=== PATIENT | female | born 1975 | race Two or more races ===

== ENCOUNTER → 2024-03-11 | Outpatient (CLI) | payer MEDICAID, SELFPAY ==
--- NOTE | 2024-03-11 14:39 | XR_ITS ---
EXAMINATION: Ankle, left 3 views . Technique: Ankle AP, oblique, lateral 3 views Date and time of exam: March 11, 2024 1500 hours INDICATIONS: Trimalleolar ankle fractures 3 months ago FINDINGS: Significant partial healing fractures distal fibular shaft and medial malleolus with satisfactory alignment No ankle dislocation Orthopedic hardware satisfactory position IMPRESSION: Partial healing fractures distal fibular shaft and medial malleolus Recommend continued follow-up to document more complete healing, especially medial malleolar fracture
== END | disposition home or self-care (01) ==
PROVIDERS: PCP Family Medicine; Referring Provider Podiatrist; Visit Provider Podiatrist
DX: S82.852D Displaced trimalleolar fracture of left lower leg, subsequent encounter for closed fracture with routine healing (principal); S82.52XD Displaced fracture of medial malleolus of left tibia, subsequent encounter for closed fracture with routine healing; X58.XXXD Exposure to other specified factors, subsequent encounter
CPT/HCPCS: 73610

== ENCOUNTER → 2024-04-08 | Outpatient (CLI) | payer MEDICAID, SELFPAY ==
--- NOTE | 2024-04-08 | XR_ITS ---
EXAMINATION: Ankle, left 3 views . Technique: Ankle AP, oblique, lateral 3 views Date and time of exam: April 08, 2024 1349 hours INDICATIONS: History ankle fracture is postop reduction internal fixation bimalleolar fractures Comparison March 11, 2024 FINDINGS: Healing fractures distal fibular shaft and medial malleolus Fracture line is still quite evident at the medial malleolus on the alignment is satisfactory IMPRESSION: Recommend continued follow-up to exclude nonunion of the medial malleolar fracture
== END | disposition home or self-care (01) ==
PROVIDERS: Referring Provider Podiatrist; Visit Provider Podiatrist
DX: Z47.89 Encounter for other orthopedic aftercare (principal)
CPT/HCPCS: 73610

== ENCOUNTER → 2024-04-22 | Outpatient (CLI) | payer MEDICAID, SELFPAY ==
--- NOTE | 2024-04-22 09:33 | XR_ITS ---
EXAMINATION: Ankle, left 3 views . Technique: Ankle AP, oblique, lateral 3 views Date and time of exam: April 22, 2024 at 0942 hrs. Indications: History ankle surgery postop reduction internal fixation bimalleolar fractures 2 months ago Findings: Operative reduction internal fixation bimalleolar fractures Significant healing fracture distal fibular shaft Fracture line is still visible at the medial malleolus Impression: Suggest continued follow-up to document more complete healing of medial malleolar fracture
== END | disposition home or self-care (01) ==
LOC: CDIM 09:23
PROVIDERS: Referring Provider Podiatrist; Visit Provider Podiatrist
DX: S82.52XA Displaced fracture of medial malleolus of left tibia, initial encounter for closed fracture (principal); X58.XXXA Exposure to other specified factors, initial encounter; Z47.89 Encounter for other orthopedic aftercare
CPT/HCPCS: 73610

== ENCOUNTER 2024-08-21 16:00 | Outpatient (RCR) | payer MEDICAID, SELFPAY ==
--- NOTE | 2024-08-06 15:30 | PTNOTE_ITS ---
PT OP Initial Eval Patient Information Outpatient Physical Therapy Treatment Date: 08/06/24 Medical Diagnosis: M21.612 Treatment Dx #1: Decreased L ankle ROM Treatment Dx #2: L ankle pain Start of Care: 08/06/24 Date of Onset: 01/03/24 Smoking Status Smoking Status: Never smoker Initial Assessment Subjective: Pt is 49 yr old german speaking female s/p L Bimalleolar FX and ORIF presents ambulating without assistive device. Pt reports pain and points to the medial and lateral aspects as sites of pain. Increased pain with walking which is limited to 10 minutes. PMH: none reported Imaging: Xray of ankle in EMR Pt goal: to walk without L foot pain Objective: L foot AROM: DF: neutral limited by pain and limitations PF: 55 deg Inversion: full Eversion: full Gait: decreased DF ROM during stance phase, L LE abducted, unsymmetrical pattern TTP: min of medial/lateral malleoli Assessment: Pt presents with decreased L ankle dorsiflexion ROM that seems to have hard end- feel at neutral DF. This ROM limitation affects her gait pattern and distance. Pt may benefit from skilled therapy but rehab potential may be limited if DF ROM is limited by joint or ORIF. Short Term and [facility] Goals 1. Ind with HEP 2. Improved L ankle DF to at least 8 deg 3. Pt will ambulate x community distances with symmetrical pattern 4. Decreased TTP from min to none of B malleoli Treatment Plan ?1. Manual therapy ? 2. Therex ? 3. Modalities as indicated, moist heat, ice, estim Frequency and Duration: 2x a week for 12 visits plus the evaluation Certification Dates: 08/06/24 to 11/04/24 Procedure Charges OP PT Eval Mod Complex 30 minutes: Yes
--- NOTE | 2024-08-19 18:15 | PT.ODAYNRPT ---
PT Outpatient Daily Note OP Daily Note Outpatient Physical Therapy Treatment Date: 08/19/24 Visit Reasons: Bunion on left foot Subjective: Same as evaluation Objective: See F/S for therex Assessment: Limited ankle DF ROM Plan: Continue per POC Length of Time (minutes) of Treatment: 30 Minutes Procedure Charges Therapeutic Exercise 30 minutes: Yes
--- NOTE | 2024-08-21 17:18 | PT.ODAYNRPT ---
PT Outpatient Daily Note OP Daily Note Outpatient Physical Therapy Treatment Date: 08/21/24 Visit Reasons: Bunion on left foot Subjective: The ankle feels tight Objective: See F/S for therex Assessment: Limited ankle DF ROM causes knee hyperextension in terminal stance Plan: Continue per POC Length of Time (minutes) of Treatment: 30 Minutes Procedure Charges Therapeutic Exercise 30 minutes: Yes
== END 2024-08-25 23:59 | disposition home or self-care (01) ==
LOC: CPTX 16:00
PROVIDERS: PCP Podiatrist; Referring Provider Podiatrist; Visit Provider Podiatrist
DX: M25.572 Pain in left ankle and joints of left foot (principal); S82.842D Displaced bimalleolar fracture of left lower leg, subsequent encounter for closed fracture with routine healing; X58.XXXD Exposure to other specified factors, subsequent encounter; M21.612 Bunion of left foot
CPT/HCPCS: 97110; 97162

== ENCOUNTER 2024-09-23 17:00 | Outpatient (RCR) | payer MEDICAID, SELFPAY ==
--- NOTE | 2024-09-02 17:19 | PT.ODAYNRPT ---
PT Outpatient Daily Note OP Daily Note Outpatient Physical Therapy Treatment Date: 09/02/24 Visit Reasons: buninon on left foot Subjective: The ankle feels tight Objective: MT: STM incision scars x5' See F/S for therex Assessment: Limited ankle DF ROM causes knee hyperextension in terminal stance. PROM into DF is neutral. Plan: Continue per POC Length of Time (minutes) of Treatment: 30 Minutes Procedure Charges Therapeutic Exercise 30 minutes: Yes
--- NOTE | 2024-09-15 18:29 | PT.ODAYNRPT ---
PT Outpatient Daily Note OP Daily Note Outpatient Physical Therapy Treatment Date: 09/15/24 Visit Reasons: buninon on left foot Subjective: The ankle feels tight Objective: See F/S for therex Assessment: Limited ankle DF ROM causes knee hyperextension in terminal stance. PROM into DF is neutral. Plan: Continue per POC Length of Time (minutes) of Treatment: 30 Minutes Procedure Charges Therapeutic Exercise 30 minutes: Yes
--- NOTE | 2024-09-23 18:57 | PT.ODAYNRPT ---
PT Outpatient Daily Note OP Daily Note Outpatient Physical Therapy Treatment Date: 09/23/24 Visit Reasons: buninon on left foot Subjective: Less L ankle pain with ambulating Objective: MT: STM incision scars x5' See F/S for therex Assessment: Limited ankle DF ROM causes knee hyperextension in terminal stance. Less pain with PROM of L ankle and less TTP of incision scars at min to none. Plan: Continue per POC Length of Time (minutes) of Treatment: 30 Minutes Procedure Charges Therapeutic Exercise 30 minutes: Yes
== END 2024-09-25 23:59 | disposition home or self-care (01) ==
LOC: CPTX 17:00
PROVIDERS: PCP Podiatrist; Referring Provider Podiatrist; Visit Provider Podiatrist
DX: M25.572 Pain in left ankle and joints of left foot (principal); M21.612 Bunion of left foot; S82.842D Displaced bimalleolar fracture of left lower leg, subsequent encounter for closed fracture with routine healing; X58.XXXD Exposure to other specified factors, subsequent encounter
CPT/HCPCS: 97110

== ENCOUNTER 2024-10-21 17:00 | Outpatient (RCR) | payer MEDICAID, SELFPAY ==
--- NOTE | 2024-10-07 17:33 | PT.ODAYNRPT ---
PT Outpatient Daily Note OP Daily Note Outpatient Physical Therapy Treatment Date: 10/07/24 Visit Reasons: BUNNION ON LEFT FOOT Subjective: Less L ankle pain with ambulating Objective: MT: STM incision scars x5' See F/S for therex Assessment: Less pain with PROM of L ankle and less TTP of incision scars at min to none. Plan: Continue per POC Length of Time (minutes) of Treatment: 30 Minutes Procedure Charges Therapeutic Exercise 30 minutes: Yes
--- NOTE | 2024-10-14 17:28 | PT.ODAYNRPT ---
PT Outpatient Daily Note OP Daily Note Outpatient Physical Therapy Treatment Date: 10/14/24 Visit Reasons: BUNNION ON LEFT FOOT Subjective: Less L ankle pain with ambulating Objective: See F/S for therex Assessment: Pt is still ambulating with decreased WB and unsymmetrical gait pattern Plan: Continue per POC Length of Time (minutes) of Treatment: 30 Minutes Procedure Charges Therapeutic Exercise 30 minutes: Yes
--- NOTE | 2024-10-21 17:50 | PT.ODAYNRPT ---
PT Outpatient Daily Note OP Daily Note Outpatient Physical Therapy Treatment Date: 10/21/24 Visit Reasons: BUNNION ON LEFT FOOT Subjective: Less L ankle pain with ambulating Objective: See F/S for therex Assessment: Pt is ambulating with more unsymmetrical gait pattern but knee hyperextends in stance phase Plan: Continue per POC Length of Time (minutes) of Treatment: 30 Minutes Procedure Charges Therapeutic Exercise 30 minutes: Yes
== END 2024-10-26 23:59 | disposition home or self-care (01) ==
LOC: CPTX 17:00
PROVIDERS: PCP Podiatrist; Referring Provider Podiatrist; Visit Provider Podiatrist
DX: M25.572 Pain in left ankle and joints of left foot (principal); M21.612 Bunion of left foot
CPT/HCPCS: 97110

== ENCOUNTER 2024-11-19 17:00 | Outpatient (RCR) | payer MEDICAID, SELFPAY ==
--- NOTE | 2024-11-05 17:41 | PT.ODS1RPT ---
PT OP Progress/Discharge Note Date of Service: 11/05/24 Progress Note/DC Note Progress Note/Discharge Note: Progress Note Patient Information Visit Reasons: Bunion on left foot Service Continue Service or Discharge: Continue Service Status Subjective: Pt reports less L ankle pain and that she is walking further. Objective: L ankle AROM: DF: neutral PF: full and painfree Gait: decreased DF ROM during stance phase with knee hyperextension Assessment: Pt has attended the eval and 11/07 Rx sessions with good progress with therapy goals. She has met the goals of decreased TTP from min to none of B malleoli and ambulating community distances with symmetrical pattern. Pt hasn't improved ankle DF ROM and compensates with knee hyperextension despite gait training and gastroc stretching along with manual PROM into ankle DF. She would benefit from the remaining 3 visits to work on this. Plan: We will need provider's signature to extend the POC from 11/04/24 to 01/04/25 in order to complete the 3 remaining authorized visits Procedure Charges Therapeutic Exercise 30 minutes: Yes
--- NOTE | 2024-11-12 17:22 | PT.ODAYNRPT ---
PT Outpatient Daily Note OP Daily Note Outpatient Physical Therapy Treatment Date: 11/12/24 Visit Reasons: Bunion on left foot Subjective: Pt states she is doing well with no complaints of pain to Lt ankle. Objective: See F/S for therex performed Assessment: Progressed to single leg balance on airex; good tolerance w/ no pain to Lt ankle. Pt has limited Lt ankle DF and continues to hyperextend knee in stance phase. Plan: Continue with POC. Length of Time (minutes) of Treatment: 30 Minutes Procedure Charges Therapeutic Exercise 30 minutes: Yes
--- NOTE | 2024-11-19 17:18 | PT.ODAYNRPT ---
PT Outpatient Daily Note OP Daily Note Outpatient Physical Therapy Treatment Date: 11/19/24 Visit Reasons: Bunion on left foot Subjective: Pt c/o minimal pain to Lt ankle Objective: See F/S for therex performed Assessment: Progressed to SB wall squat; demo'd good mechanics post min vc's and tc's to push hips back and avoid knees over toes. Good tolerance with resisted 4-way ankle exercise; required tc to avoid LE rotation with inversion/eversion. Plan: Continue with POC Length of Time (minutes) of Treatment: 30 Minutes Procedure Charges Therapeutic Exercise 30 minutes: Yes
== END 2024-11-25 23:59 | disposition home or self-care (01) ==
LOC: CPTX 17:00
PROVIDERS: PCP Podiatrist; Referring Provider Podiatrist; Visit Provider Podiatrist
DX: M25.572 Pain in left ankle and joints of left foot (principal); M21.612 Bunion of left foot; S82.842D Displaced bimalleolar fracture of left lower leg, subsequent encounter for closed fracture with routine healing; X58.XXXD Exposure to other specified factors, subsequent encounter
CPT/HCPCS: 97110

== ENCOUNTER 2024-12-01 16:51 | Outpatient (RCR) | payer MEDICAID, SELFPAY ==
--- NOTE | 2024-12-01 18:21 | PT.ODS1RPT ---
PT OP Progress/Discharge Note Date of Service: 12/01/24 Progress Note/DC Note Progress Note/Discharge Note: DC Note Patient Information Visit Reasons: Bunion on left foot Service Continue Service or Discharge: Discharge Discharge Date: 12/01/24 Status Subjective: Pt reports less L ankle pain and that she is walking every day for exercise Objective: L ankle AROM: DF: 7 deg PF: full and painfree Gait: decreased DF ROM during stance phase with knee hyperextension TTP: non-TTP medial/lateral malleoli Assessment: Pt has attended the eval and 02/06 Rx sessions with good progress with therapy goals. She has met the goals of decreased TTP from min to none of B malleoli and ambulating community distances with symmetrical pattern. Pt has improved ankle DF ROM to meet that goal. Thank you for your referrals. Plan: D/C with HEP Procedure Charges Therapeutic Exercise 30 minutes: Yes
== END 2024-12-26 23:59 | disposition home or self-care (01) ==
LOC: CPTX 16:51
PROVIDERS: PCP Podiatrist; Referring Provider Podiatrist; Visit Provider Podiatrist
DX: M25.572 Pain in left ankle and joints of left foot (principal); M21.612 Bunion of left foot
CPT/HCPCS: 97110